=== PATIENT | male | born 1950 | race Caucasian/White ===

== ENCOUNTER 2024-04-25 11:09 | Outpatient (CLI) | payer MEDICARE, OTHER ==
[2024-04-25 12:21] LABS: #Basophils 0.05 10x3/uL (0.0-0.2); %Basophils 0.9 % (0.0-1.0); %Eosinophils 2.6 % (0.0-10.0); %Lymphocytes 27.4 % (21.0-51.0); %Monocytes 8.2 % (0.0-10.0); %Neutrophils 59.9 % (42.0-75.0); Hematocrit 44.6 % (42.0-52.0); Hemoglobin 15.2 g/dL (14.0-18.0); Mean Corpuscular HGB CONC 34.1 g/dL (32.0-36.0); Mean Corpuscular Hemoglobin 30.4 pg (27.0-31.0); Mean Corpuscular Volume 89.2 fL (78.0-98.0); Mean Platelet Volume 10.5 fL (7.4-10.4); Platelet Count 296 10x3/uL (130-400); RBC Distribution Width 13.5 % (11.5-14.5)
[2024-04-25 12:34] LABS: INR-International Normal Ratio 1.1; Prothrombin Time 13.7 sec (12.0-14.7)
[2024-04-25 13:03] LABS: Anion Gap 11 mmol/L (10-20); Carbon Dioxide 27 mmol/L (23-31); Chloride 104 mmol/L (98-107); Glucose 148 mg/dL (83-110); Potassium 4.2 mmol/L (3.5-5.1); Sodium 138 mmol/L (136-145)
[2024-04-25 13:04] LABS: BUN (Urea Nitrogen) 16 mg/dL (8.4-25.7)
[2024-04-25 13:21] LABS: Calc. Creatinine Clearance 0 mL/min (70-130); Estimated GFR 92
== END 2024-04-25 11:10 | disposition home or self-care (01) ==
LOC: LABBT 11:09
PROVIDERS: ATTEND Orthopaedic Surgery
DX: Z01.818 Encounter for other preprocedural examination (principal); M19.011 Primary osteoarthritis, right shoulder
CPT/HCPCS: 80048; 85025; 85610; 87081; 93005; 93010

== ENCOUNTER 2024-05-02 09:32 | Observation (INO) | payer MEDICARE, OTHER ==
[2024-04-25 11:22] VITALS: BMI 31.6
[2024-05-02] MEDS ORDERED: Vancomycin (BATCH) 300 ML ONE (09:59)
[2024-05-02] MEDS ORDERED: Sodium Chloride 0.9% 100 ML ONE (09:59)
[2024-05-02] MEDS ORDERED: Tranexamic Acid 1,000 MG/10 ML VIAL ONE (09:59)
[2024-05-02] MEDS ORDERED: CEFAZOLIN 2 GM VIAL ONE (10:02)
[2024-05-02] MEDS ORDERED: fentaNYL PF 100 MCG/2 ML SYRINGE ONE ×2 (10:06→13:24)
[2024-05-02] MEDS ORDERED: PROPOFOL 40 ML ONE (10:06)
[2024-05-02] MEDS ORDERED: Midazolam HCl 2 mg/2 ml Vial ONE ×2 (10:10→10:15)
[2024-05-02] MEDS ORDERED: fentaNYL 50 mcg/mL 1 mL Vial ONE ×2 (10:15→13:16)
[2024-05-02] MEDS ORDERED: Ropivacaine 0.5% HCl/PF (150 MG/30 ML VIAL) ONE (10:15)
[2024-05-02] MEDS ORDERED: traMADol HCl 50 MG TAB PO PRN ×2 (10:45)
[2024-05-02] MEDS ORDERED: Ropivacaine 0.2% 550 ML 550 ML NERVE BLCK SCH (10:45)
[2024-05-02] MEDS ORDERED: HYDROcodone/Acetaminophen 10/325 mg Tablet PO PRN (10:45)
[2024-05-02] MEDS ORDERED: Ondansetron PF 4 MG/2 ML Vial IVP PRN ×2 (10:45→13:22)
[2024-05-02] MEDS ORDERED: Promethazine HCl 25 MG/ML VIAL IM PRN (10:45)
[2024-05-02] MEDS ORDERED: Lidocaine 1% PF 5 ML VIAL ONE (10:58)
[2024-05-02] MEDS ORDERED: Rocuronium Bromide 10 MG/ML (10ML VIAL) ONE (10:58)
[2024-05-02] MEDS ORDERED: Dexamethasone 20 MG/5 ML VIAL ONE (10:58)
[2024-05-02] MEDS ORDERED: ePHEDrine Sulfate 50 MG/10 ML VIAL ONE (11:16)
[2024-05-02] MEDS ORDERED: Glycopyrrolate 0.2 MG/ML 5 ML SYRINGE ONE (11:18)
[2024-05-02] MEDS ORDERED: PHENYLEPHRINE-NS 100 MCG/ML 10 ML SYRINGE ONE (12:01)
[2024-05-02] MEDS ORDERED: Ondansetron PF 4 MG/2 ML Vial ONE (12:33)
[2024-05-02] MEDS ORDERED: Ketorolac Tromethamine 30 MG (1 mL) VIAL ONE (12:33)
[2024-05-02] MEDS ORDERED: SUGAMMADEX SODIUM 200 MG/2 ML VIAL ONE (12:40)
[2024-05-02] MEDS ORDERED: PROPOFOL 20 ML ONE (12:45)
[2024-05-02] MEDS ORDERED: Acetaminophen 325 MG TAB PO PRN (13:22)
[2024-05-02] MEDS ORDERED: Ondansetron ODT 4 MG TAB PO PRN (13:22)
[2024-05-02] MEDS ORDERED: diphenhydrAMINE 50 MG CAP PO PRN (13:22)
[2024-05-02] MEDS ORDERED: Bisacodyl 10 MG SUPP PR PRN (13:22)
[2024-05-02] MEDS: Ketorolac Tromethamine 30 MG (1 mL) VIAL IVP SCH (15:39)
[2024-05-02] MEDS: Sodium Chloride 0.9% 1,000 ML IV SCH (16:04)
[2024-05-02] MEDS: fentaNYL 50 mcg/mL 1 mL Vial SLOW IVP PRN (16:51)
[2024-05-02] MEDS: CEFAZOLIN 2 GM in Sodium Chloride 0.9% 100 ML IVPB SCH (17:05)
[2024-05-02] MEDS: Famotidine 20 MG TAB PO SCH (20:53)
[2024-05-02] MEDS: Zolpidem Tartrate 5 MG TAB PO PRN (20:53)
[2024-05-03] MEDS: Methocarbamol 500 MG TAB PO PRN (05:20)
[2024-05-03 08:13] VITALS: BP 143/75; TEMP 97.5
[2024-05-03] MEDS: Rosuvastatin 5 MG TAB PO SCH (08:42)
[2024-05-03] MEDS: metFORMIN 500 MG TAB PO SCH (08:43)
[2024-05-03] MEDS: HYDROcodone/Acetaminophen 10/325 mg Tablet PO PRN (08:43)
[2024-05-03] MEDS: Lisinopril 5 MG TAB PO SCH (08:43)
== END 2024-05-03 11:35 | disposition home or self-care (01) ==
LOC: SDC 09:32 → SURG A 15:01
PROVIDERS: ADMIT Orthopaedic Surgery; ATTEND Orthopaedic Surgery
PROC: 3E0T3BZ Introduction of Anesthetic Agent into Peripheral Nerves and Plexi, Percutaneous Approach (ICD-10-PCS; principal; 2024-05-02)
DX: M19.011 Primary osteoarthritis, right shoulder (principal); M24.011 Loose body in right shoulder; M75.21 Bicipital tendinitis, right shoulder; M67.411 Ganglion, right shoulder; E11.9 Type 2 diabetes mellitus without complications; I10 Essential (primary) hypertension; E78.5 Hyperlipidemia, unspecified; G47.33 Obstructive sleep apnea (adult) (pediatric); Z79.899 Other long term (current) drug therapy
CPT/HCPCS: 23430; 23472; 64416; 97110; 97116; 97530; 97535; A4306; C1713; C1776 ×3; J1100; J1885 ×2; J2250; J2405; J2704; J2795 ×2; J3010; J3370; J7030